=== PATIENT | female | born 2000 | race American Indian/Alaskan Native ===

== ENCOUNTER 2024-06-09 21:40 | Emergency (ER) | payer MEDICAID, SELFPAY ==
[2024-06-09 21:41] VITALS: BMI 25.6
[2024-06-09 21:59] VITALS: BP 114/76; PULSE 116; RESP 16; TEMP 38.4; O2SAT 97
--- NOTE | 2024-06-09 22:17 | PD.EDRME ---
Rapid Medical Screening Exam RME Arrival date/time: 06/09/24 21:40 23-year-old female no significant past medical history approximately 4 weeks presents emergency department complaining ofvfever, cough, sob, congestion, headache for several days. Chief Complaint: Flu Like Symptoms Time Seen by Provider: 06/09/24 21:42 Vital signs: Vital Signs Temperature 101.2 F H 06/09/24 21:59 Pulse Rate 116 H 06/09/24 21:59 Respiratory Rate 16 06/09/24 21:59 Blood Pressure 114/76 06/09/24 21:59 Pulse Oximetry (%) 97 06/09/24 21:59 Oxygen Delivery Method Room Air 06/09/24 21:59 Vital signs reviewed by provider: Yes
[2024-06-09 22:26] VITALS: TEMP 38.4
[2024-06-09] MEDS: ACETAMINOPHEN 500 MG TABLET PO (22:26)
[2024-06-09 23:03] LABS: Strep A Rapid Negative (Negative)
[2024-06-09 23:17] LABS: Collection Type, Urine Clean Catch; RBC,Urine 0 /hpf (0-3); WBC,Urine 0 /hpf (0-5)
--- NOTE | 2024-06-09 23:28 | PD.EDURI ---
Upper Respiratory Inf. RME/HPI General Chief Complaint: Flu Like Symptoms Stated Complaint: fever, cough, sob, congestion, headache. Time Seen by Provider: 06/09/24 21:42 Source: patient Arrival date/time: 06/09/24 21:40 23-year-old female no significant past medical history approximately 4 weeks presents emergency department complaining of fever, cough, sob, congestion, headache for 2 days. Patient denies any vomiting, diarrhea, vaginal bleeding, abdominal cramping, dysuria, or any other associated symptom. Mode of arrival: ambulatory Limitations: no limitations RME / HPI RME / HPI Narrative: 06/09/24 21:40 23-year-old female no significant past medical history approximately 4 weeks presents emergency department complaining ofvfever, cough, sob, congestion, headache for several days. Related Data Home Medications ?Medication ?Instructions ?Recorded ?Confirmed medroxyprogesterone 150 mg/mL See Rx Instructions .Route 06/18/18 06/18/18 intramuscular suspension .COMPLEX Control (Depo-Provera) Previous Rx's ?Medication ?Instructions ?Recorded ibuprofen 400 mg tablet 400 mg PO QID PRN pain #30 tabs 09/12/18 acetaminophen 500 mg capsule 500 mg PO Q6H PRN pain #30 caps 06/09/24 oseltamivir 75 mg capsule 75 mg PO BID 5 days #10 caps 06/09/24 Allergies Allergy/AdvReac Type Severity Reaction Status Date / Time NKA Allergy Unknown Uncoded 01/02/03 23:36 Review of Systems Review of Systems Systems Reviewed: All systems reviewed, normal except as documented Constitutional Constitutional: Reports system reviewed and no additional complaints, except as documented, Denies body ache(s), Denies chills, Reports fever(s) and Reports headache(s) Eyes Eyes: Reports system reviewed and no additional complaints, except as documented and Denies change in vision ENT Ears, Nose, Mouth, and Throat: Reports system reviewed and no additional complaints, except as documented, Denies disequilibrium, Denies dizziness, Reports headache(s), Reports nasal congestion, Denies sore throat and Denies vertigo Cardiovascular Cardiovascular: Reports system reviewed and no additional complaints, except as documented, Denies chest pain and Reports dyspnea Respiratory Respiratory: Reports system reviewed and no additional complaints, except as documented, Denies chest congestion, Reports cough and Reports dyspnea Gastrointestinal Gastrointestinal: Reports system reviewed and no additional complaints, except as documented, Denies abdominal pain, Denies nausea and Denies vomiting Musculoskeletal Musculoskeletal: Reports system reviewed and no additional complaints, except as documented, Denies abnormal gait and Denies arthralgias Integumentary/Breasts Skin/Breast: Reports system reviewed and no additional complaints, except as documented, Denies erythema, Denies rash and Denies wounds Neurologic Neurologic: Reports system reviewed and no additional complaints, except as documented, Denies abnormal gait, Denies disequilibrium, Denies dizziness, Reports headache(s) and Denies vertigo Past Medical History Past Medical History NEUROLOGIC: Positive Meningitis CARDIAC: Negative Congestive Heart Failure RESPIRATORY: Negative Chronic Obstructive Pulmonary Disease (COPD) GENITOURINARY: Negative Renal Disease ENDOCRINE: Negative Diabetes Mellitus Type 1 or Diabetes Mellitus Type 2 Social History SMOKING STATUS: Light (< 1 pack/day) ED Exam General Limitations: Present no limitations General appearance: Present alert and in no apparent distress Head Head exam: Present atraumatic Eye Eye exam: Present normal appearance, PERRL and EOMI ENT ENT exam: Present normal exam, normal oropharynx and mucous membranes moist Neck Neck exam: Present normal inspection, full ROM and trachea midline Chest Chest inspection: Present normal inspection and symmetric chest wall rise Respiratory Respiratory exam: Present normal lung sounds bilaterally Cardiovascular Cardiovascular exam: Present regular rate, normal rhythm and normal heart sounds Abdominal Exam Abdominal exam: Present soft and normal bowel sounds Extremities Exam Extremities exam: Present normal inspection and full ROM Back Exam Back exam: Present normal inspection and full ROM Neurological Exam Neurological exam: Present alert, oriented X3 and CN II-XII intact Psychiatric Psychiatric exam: Present normal affect and normal mood Skin Skin exam: Present warm, dry, intact and normal color Course Quality Measures none Orders Category Date Time Status Bedside Influenza A&B Antigen Test NOW Care 06/09/24 22:16 Completed Strep A Rapid Stat Lab 06/09/24 22:30 Completed Urinalysis, C/S if Indicated Stat Lab 06/09/24 23:00 Completed Acetaminophen Tab [Tylenol ES Tab] Med 06/09/24 22:19 Discontinued 500 mg PO X1 ONE Vital Signs Vital signs: Vital Signs Temperature 101.2 F H 06/09/24 21:59 Pulse Rate 116 H 06/09/24 21:59 Respiratory Rate 16 06/09/24 21:59 Blood Pressure 114/76 06/09/24 21:59 Pulse Oximetry (%) 97 06/09/24 21:59 Oxygen Delivery Method Room Air 06/09/24 21:59 97% room air within normal limits Upper Respiratory Infection MDM Narrative MDM Narrative:: 23-year-old female no significant past medical history approximately 4 weeks presents emergency department complaining of fever, cough, sob, congestion, headache for 2 days. Patient denies any vomiting, diarrhea, vaginal bleeding, abdominal cramping, dysuria, or any other associated symptom. No adventitious lung sounds on auscultation. Patient appears nontoxic and is hemodynamically stable. Influenza positive. Urinalysis unremarkable. Patient data External records reviewed:: [facility] previous records Clinical information provided by:: patient Social determinants that could affect healthcare access:: none Patient has the following chronic illnesses:: None How is presenting disease/condition affected by chronic disease/condition?: no chronic disease Evaluation data The following diagnostics were reviewed and interpreted by me:: lab results Lab and/or radiology exams considered but not ordered:: Ordered Interpretation Summary: Interpreted by me Medications / Prescriptions Medications or Prescriptions considered but not ordered:: Ordered Medication administrations:: Medication Administration History Discontinued Medications Acetaminophen (Acetaminophen 500 Mg Tablet) 500 mg PO X1 ONE Stop: 06/09/24 22:20 Last Admin: 06/09/24 22:26 Dose: 500 mg Documented By: Given Consultations Consultation(s) initiated? (list below): No Diagnosis Upper Respiratory Differential Diagnosis: upper respiratory infection, otitis media, sinusitis, viral infection, bronchitis, influenza and pharyngitis Most likely diagnosis given after review of the tests above:: Influenza Admission Indicated Admission indicated?: not indicated Admission Request Was there a request for admission?: No Disposition Plan Disposition Plan: Discharge Discharge Attestation Discharge Attestation: The patient and all family members were given an opportunity to ask questions and understood the discharge instructions. Discharge instructions specifically effects, indications for sooner follow up or return to the emergency department, and the expected course of current diagnosis. Patient condition: Stable Discharge Plan Plan Patient Disposition: HOME (Self Care) Disposition Comment: Stable Prescriptions/Referrals Prescriptions/Med Rec: New acetaminophen 500 mg capsule 500 mg PO Q6H PRN (Reason: pain) Qty: 30 0RF oseltamivir 75 mg capsule 75 mg PO BID 5 Days Qty: 10 0RF No Action medroxyprogesterone [Depo-Provera] 150 mg/mL Suspension See Rx Instructions .ROUTE .COMPLEX Rx Instructions: 300 mg IM EVERY 6 MONTHS FOR CONTROL ibuprofen 400 mg tablet 400 mg PO QID PRN (Reason: pain) Qty: 30 0RF Referrals: Nilsa)Jennifer PA-C [Primary Care Provider] - In 1 week Problem List Clinical Impression: Influenza Patient/Caregiver Discharge Instructions Discharge Activity: activity as tolerated Education Materials: ED Influenza (Adult) Additional Instructions: Drink plenty of fluids and get plenty of rest. Take Tylenol as needed for fever or pain. Take Tamiflu as prescribed. Follow-up with primary care provider in 2 to 3 days. Return to emergency department for any worsening symptoms or as needed. Print Language: Swiss Stand Alone Forms: Heidi Award Info., Patient Portal Info Letter PA/PETER Supervising Physician PA/PETER Supervising Physician: Dr. Vergara
[2024-06-09 23:34] LABS: Bacteria,Urine Rare; Bilirubin,Urine Negative (Negative); Blood,Urine Negative (Negative); Clarity,Urine Clear (Clear/Hazy); Color,Urine Lt-Yellow (Lt Yel-Yel); Culture Indicated,Urine Not Indicated; Glucose, Urine Negative (Negative); Ketones,Urine Trace (Negative); Leukocyte Esterase,Urine Negative (Negative); Nitrite,Urine Negative (Negative); Protein,Urine Negative (Neg - Trace); Specific Gravity,Urine 1.009 (1.001-1.035); Squamous Epithelial Cell,Urine 3 /hpf (0-5); Urobilinogen,Urine Negative mg/dL (0.0-1.0)
[2024-06-10] MEDS: OSELTAMIVIR 75 MG CAPSULE PO (00:06)
[2024-06-10 00:07] VITALS: TEMP 37.3
== END 2024-06-10 00:10 | disposition home or self-care (01) ==
PROVIDERS: Emergency Provider Emergency Medicine; PCP Nurse Practitioner Family; Referring Provider Emergency Medicine
DX: J11.1 Influenza due to unidentified influenza virus with other respiratory manifestations (principal); O99.511 Diseases of the respiratory system complicating pregnancy, first trimester; Z3A.01 Less than 8 weeks gestation of pregnancy
CPT/HCPCS: 81001; 87400; 87651; 99283; A9270

== ENCOUNTER 2025-01-20 16:59 | Outpatient (CLI) | payer MEDICAID, SELFPAY ==
[2025-01-20 17:00] VITALS: BP 118/65; PULSE 100; RESP 16; RESP 98; TEMP 36.8; BMI 29.7
[2025-01-20 17:20] VITALS: BP 118/65; PULSE 90
[2025-01-20 17:52] VITALS: BP 103/59; PULSE 95
[2025-01-20 17:57] LABS: ROM Kit Lot # 58102387; ROM Swab Mixed By: MEDIA1; Rupture of Fetal Membranes Negative (Negative); Swb Mxed in Solvent 1 min? Yes
== END 2025-01-20 18:19 | disposition home or self-care (01) ==
LOC: S4S1 17:02 → S4SX 17:03
PROVIDERS: Referring Provider Specialist; Visit Provider Specialist
DX: O36.8130 Decreased fetal movements, third trimester, not applicable or unspecified (principal); Z3A.35 35 weeks gestation of pregnancy
CPT/HCPCS: 59025; 84112

== ENCOUNTER 2025-02-14 09:31 | Inpatient (IN) | payer MEDICAID, SELFPAY ==
[2025-02-14] VITALS (181 sets, daily range): BP systolic 89–135; BP diastolic 50–81; PULSE 69–122; RESP 16–100; TEMP 36.5–37.8; O2SAT 90–100; BMI 32.3
[2025-02-14] MEDS: RINGERS LACTATED 500 ML 500 ML 999 ML IV (12:00)
[2025-02-14 12:26] LABS: Basophils # (Auto) 0.0 Thou/mm3 (0.0-0.2); Basophils % (Auto) 0 % (0-2.5); Eosinophils # (Auto) 0.0 Thou/mm3 (0.0-0.5); Eosinophils % (Auto) 0 % (0-10); Hematocrit 30.5 % (36.0-46.0); Hemoglobin 9.9 g/dL (12.0-16.0); Immature Granulocytes Auto 0.07 Thou/mm3 (0.00-0.00); Lymphocytes # (Auto) 1.0 Thou/mm3 (1.0-4.8); Lymphocytes % (Auto) 7 % (10-50); Mean Corpuscular HGB Conc 32.5 g/dl (31.0-37.0); Mean Corpuscular Hemoglobin 27.0 pg (25.0-35.0); Mean Corpuscular Volume 83 fL (80-100); Monocytes # (Auto) 0.4 Thou/mm3 (0.0-0.8); Monocytes % (Auto) 3 % (0-12); Neutrophils # (Auto) 13.6 Thou/mm3 (1.8-7.7); Neutrophils % (Auto) 90 % (37-80); Nucleated Red Blood Cell # 0.00 Thou/mm3 (0.00-0.00); Nucleated Red Blood Cell % 0 /100 WBC (0); Platelet Count 282 Thou/mm3 (140-440); RDW Standard Deviation 44.8 fL (36.4-46.3); Red Blood Count 3.66 Miln/mm3 (4.00-5.20); White Blood Count 15.1 Thou/mm3 (3.6-11.0)
[2025-02-14] MEDS: RINGERS LACTATED 1000 ML 1,000 ML 100 ML IV ×3 (13:00→19:13)
[2025-02-14] MEDS: fentaNYL CIT INJ 50 mCg/ML AMP 2ML 100 MCG IVP (13:10)
[2025-02-14 13:22] LABS: Syphilis Nonreactive (Nonreactive)
--- NOTE | 2025-02-14 13:48 | PD.LDHP ---
Documentation for date of: 02/14/25 OB Labor/Induct. HPI History of Present Illness : 1 Para: 0 Term pregnancies: 0 pregnancies: 0 Living children: 0 History of Abortions: Spontaneous and Elective: 0 History of Vaginal deliveries: 0 History of sections: No History of : No Date of last menstrual period: 05/17/24 ANSELMO: 02/21/25 Gestational age based on last menstrual period: 39 History of present illness: H and P dictated on the STAT line #9 in [employer]: [id number] History of Present Adequate Care: Yes Labs Labs: Positive: Rubella Titre, Negative: RPR, Hepatitis B, HIV, Chlamydia, Gonorrhea and Group Beta Strep and Unknown: Herpes Type 1 and Covid-19 Past Medical History Surgical History SURGICAL: Negative Section Meds Home Medications and Allergies Home Medications ?Medication ?Instructions ?Recorded ?Confirmed ?Type medroxyprogesterone 150 mg/mL See Rx Instructions .Route 06/18/18 02/14/25 History intramuscular suspension .COMPLEX Control (Depo-Provera) doxylamine 10 mg-pyridoxine (vit 1 tab PO QDAY 01/20/25 02/14/25 History B6) 10 mg tablet,delayed release (Diclegis) omeprazole 10 mg capsule,delayed 10 mg PO QDAY 01/20/25 02/14/25 History release ondansetron HCl 4 mg tablet 4 mg PO QDAY 01/20/25 02/14/25 History Allergies Allergy/AdvReac Type Severity Reaction Status Date / Time No Known Allergies Allergy Unverified 02/14/25 11:32 OB Exam Physical Exam Vital signs: Temp Pulse Resp BP Pulse Ox 98.0 F 82 17 133/77 H 100 02/14/25 12:30 02/14/25 11:41 02/14/25 12:30 02/14/25 11:41 02/14/25 13:46 OB Results Labs 02/14/25 12:15 Labs: Short CBC 02/14/25 Range/Units 12:15 WBC 15.1 H (3.6-11.0) Thou/mm3 Hgb 9.9 L (12.0-16.0) g/dL Hct 30.5 L (36.0-46.0) % Plt Count 282 (140-440) Thou/mm3
--- NOTE | 2025-02-14 14:38 | ESHP_ITS ---
RE: ANNA MARIE SHERIDAN : 2000 DATE OF ADMISSION: 02/14/2025 HISTORY OF PRESENT ILLNESS: This is a 24-year-old 1, para 0 with due date of 02/21/2025 with intrauterine at 39 weeks and 0 days who presents to labor and delivery complaining of labor pains and is noted to have persistent regular contractions with dilated cervix per the RN in early labor, so the patient was admitted. She denies any leaking or bleeding. She reports normal movement. Her care with [facility] was complicated by iron deficiency anemia as well as influenza on 06/09/2024. An ultrasound performed on 02/05/2025 showed estimated weight 7 pounds 13 ounces. ALLERGIES: NO KNOWN DRUG ALLERGIES. MEDICATIONS: multivitamin 1 p.o. daily. SOCIAL HISTORY: She denies any alcohol, drug use or smoking. FAMILY HISTORY: Breast cancer, depression, anxiety. PAST SURGICAL HISTORY: Denies. PHYSICAL EXAMINATION: VITAL SIGNS: Blood pressure 130/77, heart rate 88, respirations 18, temperature 98.6, weight 185 pounds. HEENT: Oropharynx and sclerae are clear. LUNGS: Clear to auscultation bilaterally. HEART: Regular rate and rhythm. ABDOMEN: Gravid, term size consistent with estimated weight of 8 pounds. PELVIC: See RN notes. EXTREMITIES: Nontender. SKIN: No gross rashes or lesions. NEUROLOGIC: No focal deficits. ASSESSMENT AND PLAN: Intrauterine at 39 weeks and 0 days. Early labor. Anticipated spontaneous vaginal delivery. Informed consent was obtained. The patient is made aware of the risks, complications, alternatives, and benefits of operative vaginal delivery and delivery and agrees with these modes of delivery if indicated. DT: 13:46:44 TT: 14:36:00 Ref: [id number] - TID: [id number]
[2025-02-14] MEDS: ONDANSETRON INJ 2 MG/ML INJ 2 ML 4 MG IVP (21:25)
[2025-02-14] MEDS: GENTAMICIN/NS 80 MG IVPB 80 MG/50 ML PIGGYBACK 50 MG IV (22:39)
[2025-02-14] MEDS: ACETAMINOPHEN IVPB 1,000 MG/100 ML VIAL 250 MG IV (22:55)
[2025-02-14] MEDS: Ampicillin Inj 2,000 MG in SODIUM CHLORIDE 0.9% (POP) 100 ML 100 MG IV (23:39)
[2025-02-15] VITALS (153 sets, daily range): BP systolic 106–128; BP diastolic 58–90; PULSE 70–146; RESP 17–22; TEMP 36.7–37.2; O2SAT 79–100
[2025-02-15] MEDS: OXYTOCIN in NS 30 units 30 UNIT/500 ML BAG IV (03:07)
[2025-02-15] MEDS: ONDANSETRON INJ 2 MG/ML INJ 2 ML 4 MG IVP (03:46)
[2025-02-15] MEDS: Ampicillin Inj 2,000 MG in SODIUM CHLORIDE 0.9% (POP) 100 ML 100 MG IV ×2 (06:08→12:53)
[2025-02-15] MEDS: GENTAMICIN/NS 80 MG IVPB 80 MG/50 ML PIGGYBACK 50 MG IV ×2 (07:11→14:48)
[2025-02-15] MEDS: MINERAL OIL 30 ML UDC TOP (08:23)
[2025-02-15] MEDS: LIDOCAINE HCL 1% 20 ML VIAL INFL (08:23)
[2025-02-15] MEDS: METHYLERGONOVINE INJ 0.2 MG/ML VIAL IM (08:24)
[2025-02-15] MEDS: OXYTOCIN in NS 20 units 20 UNIT/1,000 ML BAG 125 UNIT IV (08:24)
[2025-02-15] MEDS: IBUPROFEN TAB 400 MG TABLET 800 MG PO (08:25)
--- NOTE | 2025-02-15 09:20 | PD.LDDELS ---
Data (Gonzalez) Data Hx Section: No : 1 Term: 0 : 0 Livin Abortions: Spontaneous & Theraputic: 0 Delivery Data (Gonzalez) Labor Data Initiation of labor: Spontaneous Induction/Augmentation Agent: Pitocin and Artificial ROM ROM date: 02/14/25 ROM time: 17:21 Amniotic membrane rupture type: Artificial Amniotic fluid description: Clear Delivery Data EDC: 02/21/25 EDC calculated by:: LMP/early US confirmation Onset of labor date: 02/14/25 Onset of labor time: 15:00 Complete dilation date: 02/15/25 Complete dilation time: 05:05 delivery date: 02/15/25 [place] delivery time: 07:57 Gestational age (weeks): 39 Gestational age (days): 1 Placenta delivery date: 02/15/25 Placenta delivery time: 08:11 Stage 1 total time: Labor - Stage 1 Duration 14 hours and 5 minutes Delivered by: Garland Stone Delivery nurse: JALEN Salehorn nurse: JALEN Leger Support person(s) at delivery: FOB, Mother of pt. Delivery Method Delivery method: Normal Vaginal Delivery Presentation: Vertex position: OA Anesthesia Type Anesthesia Type: Local and Epidural Placenta Placenta delivery description: Manual Removal Cord blood sent to lab: Yes cord blood collection: Cord Blood Type Lacerations #1: Labial: Bilateral 2nd degree Perineal repair Sutures used for repair: 3.0 Chromic EBL Estimated blood loss (ml): 200 Complications Complications: None [place] Data (Gonzalez) [place] Data order: 1 's gender: Male Identification band number: [id number] weight (gms): 8 lb 5.688 oz Weight (pounds): 8 lbs and 5.7 ozs length: 21.26 in 1 minute: 7 5 minutes: 9
[2025-02-15] MEDS: ACETAMINOPHEN 325 MG TABLET 650 MG PO (09:48)
[2025-02-15] MEDS: BENZO/LANO/ALOE (Dermoplast) 60 GM CAN 1 SPRAY TOP (09:48)
[2025-02-15 14:36] LABS: Basophils # (Auto) 0.1 Thou/mm3 (0.0-0.2); Basophils % (Auto) 0 % (0-2.5); Eosinophils # (Auto) 0.0 Thou/mm3 (0.0-0.5); Eosinophils % (Auto) 0 % (0-10); Hematocrit 28.0 % (36.0-46.0); Hemoglobin 9.2 g/dL (12.0-16.0); Immature Granulocytes Auto 0.17 Thou/mm3 (0.00-0.00); Lymphocytes # (Auto) 2.1 Thou/mm3 (1.0-4.8); Lymphocytes % (Auto) 8 % (10-50); Mean Corpuscular HGB Conc 32.9 g/dl (31.0-37.0); Mean Corpuscular Hemoglobin 27.9 pg (25.0-35.0); Mean Corpuscular Volume 85 fL (80-100); Monocytes # (Auto) 0.9 Thou/mm3 (0.0-0.8); Monocytes % (Auto) 4 % (0-12); Neutrophils # (Auto) 23.0 Thou/mm3 (1.8-7.7); Neutrophils % (Auto) 88 % (37-80); Nucleated Red Blood Cell # 0.00 Thou/mm3 (0.00-0.00); Nucleated Red Blood Cell % 0 /100 WBC (0); Platelet Count 256 Thou/mm3 (140-440); RDW Standard Deviation 47.5 fL (36.4-46.3); Red Blood Count 3.30 Miln/mm3 (4.00-5.20); White Blood Count 26.3 Thou/mm3 (3.6-11.0)
[2025-02-15] MEDS: AMPICILLIN/SULBAC INJ 3 GM in SODIUM CHLORIDE 0.9% (POP) 100 ML IV ×2 (15:56→23:52)
[2025-02-15] MEDS: GENTAMICIN IV (16:41)
[2025-02-15] MEDS: SODIUM CHLORIDE 0.9% IV (16:41)
--- NOTE | 2025-02-15 18:22 | PC.NURSE ---
1821: RN SPOKE WITH PHARMACY AND REVIEWED RECENT ADMINISTERED AMPICILLIN AND UNASYN DOSES WITH PHARMACIST JAIME. PER PHARMACIST, NON ADMIN. 1800 DOSE OF UNASYN AND RESUME WITH 0000 DOSE.
[2025-02-16] VITALS: BP 111/63; PULSE 96; RESP 18; TEMP 37.1; O2SAT 98
[2025-02-16] MEDS: ACETAMINOPHEN 325 MG TABLET 650 MG PO (00:11)
[2025-02-16 04:05] VITALS: BP 110/64; PULSE 87; RESP 18; TEMP 36.8; O2SAT 97
[2025-02-16] MEDS: IBUPROFEN TAB 400 MG TABLET 800 MG PO ×2 (04:23→18:18)
[2025-02-16] MEDS: AMPICILLIN/SULBAC INJ 3 GM in SODIUM CHLORIDE 0.9% (POP) 100 ML IV ×4 (06:00→23:59)
[2025-02-16 07:02] VITALS: BP 99/60; PULSE 86; RESP 20; TEMP 36.4; O2SAT 96
--- NOTE | 2025-02-16 07:18 | ESPR_ITS ---
RE: ANNA MARIE SHERIDAN : 2000 DATE OF SERVICE: 02/16/2025 day #1. The patient denies any problem or complaint. She is voiding and ambulating and tolerating regular diet and passing flatus. She denies any excessive vaginal bleeding. She denies any dizziness or lightheadedness. She denies any chest pain, palpitations, shortness of breath or lower extremity pain. OBJECTIVE: Vital Signs: Blood pressure 110/64, heart rate 87, respirations 18, temperature is 98.2, pulse oximetry is 97% on room air. Lungs: Clear to auscultation bilaterally. Heart: Regular rate and rhythm. Abdomen: Fundus is firm, nontender. Extremities: Nontender. Hemoglobin pre-delivery is 9.9, post-delivery is 9.2. ASSESSMENT: day number 1, status post spontaneous vaginal delivery, endometritis. PLAN: Continue IV antibiotics. Possible discharge home tomorrow. DT: 07:12:31 TT: 07:16:00 Ref: [id number] - TID: [id number]
[2025-02-16 09:19] LABS: Basophils # (Auto) 0.0 Thou/mm3 (0.0-0.2); Basophils % (Auto) 0 % (0-2.5); Eosinophils # (Auto) 0.1 Thou/mm3 (0.0-0.5); Eosinophils % (Auto) 0 % (0-10); Hematocrit 24.8 % (36.0-46.0); Immature Granulocytes Auto 0.08 Thou/mm3 (0.00-0.00); Lymphocytes # (Auto) 1.8 Thou/mm3 (1.0-4.8); Lymphocytes % (Auto) 11 % (10-50); Mean Corpuscular HGB Conc 32.3 g/dl (31.0-37.0); Mean Corpuscular Hemoglobin 27.8 pg (25.0-35.0); Mean Corpuscular Volume 86 fL (80-100); Monocytes # (Auto) 0.8 Thou/mm3 (0.0-0.8); Monocytes % (Auto) 5 % (0-12); Neutrophils # (Auto) 14.4 Thou/mm3 (1.8-7.7); Neutrophils % (Auto) 84 % (37-80); Nucleated Red Blood Cell # 0.00 Thou/mm3 (0.00-0.00); Nucleated Red Blood Cell % 0 /100 WBC (0); Platelet Count 236 Thou/mm3 (140-440); RDW Standard Deviation 49.2 fL (36.4-46.3); Red Blood Count 2.88 Miln/mm3 (4.00-5.20); White Blood Count 17.2 Thou/mm3 (3.6-11.0)
[2025-02-16 09:22] LABS: Hemoglobin 8.0 g/dL (12.0-16.0)
[2025-02-16 11:50] VITALS: BP 113/75; PULSE 99; RESP 17; TEMP 36.7; O2SAT 98
[2025-02-16 20:00] VITALS: BP 125/75; PULSE 99; RESP 18; TEMP 36.7; O2SAT 98
[2025-02-17 04:00] VITALS: BP 125/75; PULSE 99; RESP 18; TEMP 36.7; O2SAT 98
[2025-02-17] MEDS: AMPICILLIN/SULBAC INJ 3 GM in SODIUM CHLORIDE 0.9% (POP) 100 ML IV ×4 (06:09→23:09)
[2025-02-17] MEDS: IBUPROFEN TAB 400 MG TABLET 800 MG PO ×2 (06:18→15:40)
[2025-02-17 07:40] VITALS: BP 125/74; PULSE 75; RESP 18; TEMP 36.6; O2SAT 98
--- NOTE | 2025-02-17 07:41 | ESPR_ITS ---
Subjective Subjective Interval history: Baby was admitted to NICU for tachypnea and placed on antibiotics. Patient remains on Unasyn and gentamicin for presumptive endometritis. She remains afebrile. She denies any cough, shortness of breath, chest pain, palpitations flank pain or lower extremity pain. She is voiding and ambulating and tolerating a regular diet. She denies any diarrhea or vaginal discharge or itching. She denies any excessive vaginal bleeding. She denies any dizziness or lightheadedness. Exam Vital Signs Temp Pulse Resp BP Pulse Ox O2 Del Method 98.1 F 99 18 125/75 98 Room Air 02/17/25 04:00 02/17/25 04:00 02/17/25 04:00 02/17/25 04:00 02/17/25 04:00 02/17/25 04:00 Routine Respiratory Exam Comments: Clear to auscultation bilaterally Routine Cardiovascular Exam Comments: Regular rate and rhythm Routine Abdominal Exam Comments: Fundus is firm nontender Routine Extremities Exam Comments: Nontender or edema Routine Skin Exam Comments: No gross rashes or lesions Routine Neurological Exam Comments: No deficits Objective Labs 02/16/25 08:30 Labs: Laboratory Results - last 24 hr 02/16/25 08:30 WBC 17.2 H D RBC 2.88 L Hgb 8.0 L Hct 24.8 L MCV 86 MCH 27.8 MCHC 32.3 RDW Std Deviation 49.2 H Plt Count 236 Neut % (Auto) 84 H Lymph % (Auto) 11 [place] % (Auto) 5 Eos % (Auto) 0 Baso % (Auto) 0 Neut # (Auto) 14.4 H Lymph # (Auto) 1.8 [place] # (Auto) 0.8 Eos # (Auto) 0.1 Baso # (Auto) 0.0 Immature Gran # (Auto) 0.08 H Absolute Nucleated RBC 0.00 Immature Gran % 1 H Nucleated RBC % 0 Impressions Impression: day #2 status post spontaneous vaginal delivery endometritis Continue Unasyn and gentamicin Repeat CBC Assessment & Plan Time Spent With Patient Time: Total time spent is greater than 50% in coordination of care (as documented) at patient's floor/unit and/or counseling patient:
[2025-02-17 09:20] LABS: Basophils # (Auto) 0.0 Thou/mm3 (0.0-0.2); Basophils % (Auto) 0 % (0-2.5); Eosinophils # (Auto) 0.2 Thou/mm3 (0.0-0.5); Eosinophils % (Auto) 2 % (0-10); Hematocrit 25.6 % (36.0-46.0); Immature Granulocytes Auto 0.04 Thou/mm3 (0.00-0.00); Lymphocytes # (Auto) 1.7 Thou/mm3 (1.0-4.8); Lymphocytes % (Auto) 14 % (10-50); Mean Corpuscular HGB Conc 31.6 g/dl (31.0-37.0); Mean Corpuscular Hemoglobin 27.3 pg (25.0-35.0); Mean Corpuscular Volume 86 fL (80-100); Monocytes # (Auto) 0.4 Thou/mm3 (0.0-0.8); Monocytes % (Auto) 3 % (0-12); Neutrophils # (Auto) 9.3 Thou/mm3 (1.8-7.7); Neutrophils % (Auto) 80 % (37-80); Nucleated Red Blood Cell # 0.00 Thou/mm3 (0.00-0.00); Nucleated Red Blood Cell % 0 /100 WBC (0); Platelet Count 259 Thou/mm3 (140-440); RDW Standard Deviation 51.5 fL (36.4-46.3); Red Blood Count 2.97 Miln/mm3 (4.00-5.20); White Blood Count 11.7 Thou/mm3 (3.6-11.0)
[2025-02-17 10:37] LABS: Hemoglobin 8.1 g/dL (12.0-16.0)
[2025-02-17 11:15] VITALS: BP 115/75; PULSE 90; RESP 18; TEMP 36.6; O2SAT 97
[2025-02-17 20:00] VITALS: BP 116/69; PULSE 83; RESP 17; TEMP 37.2; O2SAT 98
[2025-02-18 02:45] LABS: Alanine Aminotransferase 19 U/L (10-49); Albumin, Serum 3.0 gm/dL (3.5-5.0); Albumin/Globulin Ratio 1.4 (1.2-2.2); Alkaline Phosphatase 107 U/L (46-116); Anion Gap 8 (7-16); Aspartate Amino Transferase 19 U/L (0-34); BUN/Creatinine Ratio 9 Ratio (12-20); Bilirubin,Total 0.2 mg/dL (0.3-1.2); Blood Urea Nitrogen 8 mg/dL (9-23); Calcium 8.7 mg/dL (8.3-10.6); Calcium (Corrected) 9.5 mg/dL (8.5-10.1); Carbon Dioxide 24.7 mMol/L (20.0-31.0); Chloride 109 mMol/L (98-107); Creatinine (Component) 0.9 mg/dL (0.6-1.3); Estimated Creatinine Clearance 99.9 mL/min (>60); Gentamicin, Random 1.0 mcg/mL (4.0-10.0); Globulin 2.1 gm/dL (2.3-3.5); Glucose 87 mg/dL (74-106); Osmolality,Calculated 280 (275-295); Potassium 3.4 mMol/L (3.4-5.1); Sodium 142 mMol/L (136-145); Total Protein 5.1 gm/dL (5.7-8.2); eGFR > 60 See Note
[2025-02-18 04:00] VITALS: BP 118/65; PULSE 79; RESP 16; TEMP 37.2; O2SAT 99
[2025-02-18] MEDS: AMPICILLIN/SULBAC INJ 3 GM in SODIUM CHLORIDE 0.9% (POP) 100 ML IV (06:05)
[2025-02-18] MEDS: ACETAMINOPHEN 325 MG TABLET 650 MG PO (06:15)
--- NOTE | 2025-02-18 07:06 | PD.LDPPPRG ---
Subjective Subjective Interval history: Patient denies any problem complaint. She is voiding and ambulating and tolerating regular diet and passing flatus. She denies any constipation or diarrhea she denies any nausea or vomiting. She is voiding and ambulating without difficulty. She denies any excessive vaginal bleeding. She denies any chest pain palpitations shortness of breath or lower extremity pain. Exam Vital Signs Temp Pulse Resp BP Pulse Ox O2 Del Method 98.9 F 79 16 118/65 99 Room Air 02/18/25 04:00 02/18/25 04:00 02/18/25 04:00 02/18/25 04:00 02/18/25 04:00 02/18/25 04:00 Routine Respiratory Exam Comments: Clear to auscultation bilaterally Routine Cardiovascular Exam Comments: Regular rate and rhythm Routine Abdominal Exam Comments: Fundus firm nontender. Routine Extremities Exam Comments: Nontender Objective Labs 02/17/25 08:51 02/18/25 02:14 Labs: Laboratory Results - last 24 hr 02/14/25 02/17/25 02/18/25 12:15 08:51 02:14 WBC 11.7 H D RBC 2.97 L Hgb 8.1 L Hct 25.6 L MCV 86 MCH 27.3 MCHC 31.6 RDW Std Deviation 51.5 H Plt Count 259 Neut % (Auto) 80 Lymph % (Auto) 14 [place] % (Auto) 3 Eos % (Auto) 2 Baso % (Auto) 0 Neut # (Auto) 9.3 H Lymph # (Auto) 1.7 [place] # (Auto) 0.4 Eos # (Auto) 0.2 Baso # (Auto) 0.0 Immature Gran # (Auto) 0.04 H Absolute Nucleated RBC 0.00 Immature Gran % 0 Nucleated RBC % 0 Sodium 142 Potassium 3.4 Chloride 109 H Carbon Dioxide 24.7 Anion Gap 8 BUN 8 L Creatinine 0.9 Estim Creat Clear Calc 99.9 eGFR > 60 BUN/Creatinine Ratio 9 L Glucose 87 Calculated Osmolality 280 Calcium 8.7 Corrected Calcium 9.5 Total Bilirubin 0.2 L AST 19 ALT 19 Alkaline Phosphatase 107 Total Protein 5.1 L Albumin 3.0 L Globulin 2.1 L Albumin/Globulin Ratio 1.4 Random Gentamicin 1.0 L Crossmatch See Detail Impressions Impression: day #3 status post spontaneous vaginal delivery endometritis resolving Discharge home with Augmentin for 5 days. Discharge instructions given Assessment & Plan Time Spent With Patient Time: Total time spent is greater than 50% in coordination of care (as documented) at patient's floor/unit and/or counseling patient:
[2025-02-18 08:00] VITALS: BP 124/76; PULSE 75; RESP 16; TEMP 36.9; O2SAT 99
[2025-02-18] MEDS: AMOXICILLIN/POT CLAV 875 TABLET 1 TAB PO (08:09)
== END 2025-02-18 08:26 | disposition home or self-care (01) | DRG 560 ==
LOC: S4SX 02-15 08:45 → S4NX 02-15 10:44
PROVIDERS: Admitting Provider Specialist; Visit Provider Specialist
DX: O70.1 Second degree perineal laceration during delivery (principal); Z37.0 Single live birth; Z3A.39 39 weeks gestation of pregnancy; O86.12 Endometritis following delivery
CPT/HCPCS: 36415; 59025; 59409; 80053; 80170; 85025; 86780; 86850; 86900; 86901; 86923; 94762; J0131; J0290; J0295; J1580; J2210; J2405; J2590; J2795; J3010; J3490; J7050; J7120; A9270